=== PATIENT | male | born 1985 | race Hispanic/Latino ===

== ENCOUNTER 2019-06-12 18:32 | Emergency (ER) | payer OTHER ==
[2019-06-12] MEDS ORDERED: IBUPROFEN 600 MG TABLET ONE (19:35)
[2019-06-12] MEDS ORDERED: SULFAMETHOX-TMP DS 800/160 TAB ONE (19:35)
== END 2019-06-12 19:54 | disposition home or self-care (01) ==
LOC: EDH 18:32
DX: L02.411 Cutaneous abscess of right axilla (principal); Z72.0 Tobacco use